=== PATIENT | male | born 1985 | race African-American/Black ===

== ENCOUNTER 2017-08-29 14:40 | Emergency (ER) | payer SELFPAY ==
[~2017-08-29] VITALS: Ht 185.4 cm; Wt 109.0 kg
[2017-08-29 17:02] VITALS: BP 151/101
== END 2017-08-29 17:02 | disposition home or self-care (01) ==
LOC: EME 14:40
DX: S80.12XA Contusion of left lower leg, initial encounter (principal); V03.90XA Pedestrian on foot injured in collision with car, pick-up truck or van, unspecified whether traffic or nontraffic accident, initial encounter; Y92.481 Parking lot as the place of occurrence of the external cause; F17.200 Nicotine dependence, unspecified, uncomplicated; Z71.6 Tobacco abuse counseling
CPT/HCPCS: 73552; 73564; 73590; 99281; 99283